=== PATIENT | male | born 1980 | race Caucasian/White ===

== ENCOUNTER → 2023-10-19 | Outpatient (CLI) | payer SELFPAY, OTHER ==
--- NOTE | 2023-10-19 14:53 | CT_ITS ---
INDICATION: SINUSITIS EXAMINATION/TECHNIQUE: X-RAY - CT Maxillofacial W/O Contrast Injection A radiation dose optimization technique was used for this scan. RADIATION DOSAGE (If Supplied By Facility): CTDIvol/DLP = ( 28.14 ) / ( 742.67 ) mGy/mGycm COMPARISON: None. Findings: Noncontrast serial CT axial images of the facial bones with coronal and sagittal reformatted series. OSSEOUS STRUCTURES: No facial fracture. No TMJ subluxation. Pansinus opacification. Diffuse mucoperiosteal thickening throughout all sinuses consistent with chronic sinus disease. ORBITS: No obvious acute globe abnormality. No infiltration the orbital fat. REMAINING SOFT TISSUES: Unremarkable. CT/Sinus/Facial Bone IMPRESSION: Severe pansinus disease. Electronically Signed: Edilson Osorio MD at 2:06 EDT ,
== END | disposition home or self-care (01) ==
LOC: CT 14:44
PROVIDERS: PCP Family Medicine; Referring Provider Otolaryngology; Visit Provider Otolaryngology
DX: J32.8 Other chronic sinusitis (principal)
CPT/HCPCS: 70486

== ENCOUNTER 2024-01-04 05:49 | Day surgery (SDC) | payer SELFPAY, OTHER ==
[2024-01-04] VITALS (11 sets, daily range): BP systolic 98–122; BP diastolic 68–91; PULSE 50–77; RESP 12–16; TEMP 36.2–37.1; O2SAT 87–97; BMI 38.7
--- NOTE | 2024-01-04 | MASS_PTH ---
PATIENT: ASHLEY HALE LOC: [facility] – [place] U#:[id number] AGE/SX: 43/M ROOM: RE01/04/[address]: Dr. Alo Montana MD : 1980 BED: DIS: 01/04/2024 SPEC #: [id number] RECD: 01/04/24 12:18 STATUS: ANA DELANO #: [id number] AZEB: 01/04/24 00:[address]: Alo Montana DEPT: SURGICAL PATHOLOGY RECD BY: Shantanu Olivia ENTERED: 01/04/24 12:19 SP TYPE: Mass OTHR DR: Dr. Yrn Casey MD Tissues: A - NASAL POLYP B - Ethmoid sinus, NOS C - Ethmoid sinus, NOS Procedures: Frozen Section (charge) Surgery Specimen Level III Surgery Specimen Level IV HEADER OPERATION: Functional endoscopic sinus surgery with navigation PRE-OP DIAGNOSIS: Nasal congestion, polyp of nasal cavity, chronic serous otitis media, bilateral, Chronic pansinusitis TISSUE SUBMITTED: A- Mass of left nasal cavity, B- Left nasal contents, C- Right nasal contents MICROSCOPIC DIAGNOSIS A. Mass of left nasal cavity, biopsy: Fragments of inflamed benign mucosal polyp. B. Left nasal contents: Fragments of benign respiratory mucosa with chronic inflammation. A few fragments of benign squamous mucosa. C. Right sinus contents: Fragments of respiratory mucosa with chronic inflammation. 01/07/2024 COMMENT Case has been reviewed in consultation with Dr. Bass who concurs with the above diagnosis. IDC:AM MICROSCOPIC DESCRIPTION Slides are reviewed. GROSS DESCRIPTION A. Received fresh for frozen section diagnosis labeled with the patient's name is a specimen designated Polyp nasal cavity. The specimen consists of multiple fragments of mccollum-pink soft tissue that in aggregate measure 1.0 x 0.5 x 0.1 cm. The entire specimen is submitted in one cassette for frozen section diagnosis. B. Received in fixative is one container labeled with the patient's name and designated Left nasal contents. The specimen consists of multiple fragments of pink soft tissue mixed with possible fragments of bone that in aggregate measure 4.0 x 3.0 x 0.2 cm. The specimen is totally submitted in two cassettes after decalcification. C. Received in fixative is one container labeled with the patient's name and designated Right sinus contents. The specimen consists of multiple fragments of hemorrhagic soft tissue mixed with possible fragments of bone that in aggregate measure 3.0 x 2.5 x 0.3 cm. The specimen is totally submitted in one cassette after decalcification. SJVargasmr 01/04/2024 TC:5 CPT:12392m3,39335,85311e1
[2024-01-04] MEDS: Lactated Ringers 1,000 ML 15 ML IV (06:37)
[2024-01-04 06:57] LABS: Anion Gap 3 (5-15); BUN 12 mg/dL (7-18); BUN/Creat Ratio 21.9 RATIO (10-20); Calcium,Total 8.8 mg/dL (8.5-10.1); Chloride 108 mmol/L (98-107); Creatinine, Serum 0.55 mg/dL (0.70-1.30); EST Glomerular Filtration Rate 173 mL/min (>60); Est Glom Filt Rate - Afr Amer 209 mL/min (>60); Estimated Creatinine Clearance 137.17 ml/min; Glucose 88 mg/dL (74-106); Potassium 3.6 mmol/L (3.5-5.1); Sodium Level 139 mmol/L (136-145)
[2024-01-04] MEDS: Lidocaine 1% /Epi 1:100 (20ml) 20 ML Vial (07:12)
[2024-01-04] MEDS: Oxymetazoline 0.05% 1 SPRAY SPRAY.BTL 15 SPRAY (07:12)
--- NOTE | 2024-01-04 07:20 | PRE.ANES_ITS ---
ASA Classification* ASA Classification ASA Classification: 2 and 3 Assessment & Plan Anesthesia* Anesthesia Assessment Anesthesia Assessment: Discussed sedation and/or anesthesia options, risks, benefits, and alternatives with patient/parents/legal guardian/POA. Questions invited. The patient/parents/legal guardian/POA seems to understand and agrees to proceed with anesthesia plan. Reviewed the physical assessment, medical history, allergy history and patient home medications list prior to surgery/procedure/anesthetic and documented any changes. Performed airway and anesthesia risk assessments. Anesthesia Type Anesthesia Type: General (see written pre anesthesia record for full assessment) Anesthesia Focused Assessment* Temperature: 98.8 F Pulse Rate: 77 Blood Pressure: 119/91 Respiratory Rate: 14 Pulse Ox: 97 Airway Assessment Mouth opens: >3 cm Mallampati Score: II Focused Labs Anesthesia Preop lab: CBC CHEMISTRY Potassium 3.6 mmol/L (3.5-5.1) 01/04/24 06:30 Sodium 139 mmol/L (136-145) 01/04/24 06:30 BUN 12 mg/dL (7-18) 01/04/24 06:30 Creatinine 0.55 mg/dL (0.70-1.30) L 01/04/24 06:30 Glucose 88 mg/dL (74-106) 01/04/24 06:30 COAG Pre-Assessment Diagnosis/Proposed Procedure Planned Operative Procedure(s): FUNCTIONAL ENDOSCOPIC SINUS SURGERY BILATERAL MYRINGOTOMY TUBES Anesthesia History Anesthesia History - mixer whipped topping: Anesthesia History - mixer whipped topping Hx Hospitalization No 12/23/23 12:17 Any Problems With Anesthesia No 12/23/23 12:17 Cholinesterase deficiency No 12/23/23 12:17 You/Your Family Experience No 12/23/23 12:17 fever (hyperthermia) with Relationship Recent Exposure to Contagious No 01/04/24 06:34 Disease Does patient have nerve No 12/23/23 12:17 stimulator Patient instructed to have device shut off --Does patient have Pacemaker No 01/04/24 06:38 or ICD? When Was Last Pacemaker Check QUESTION #4 FULL TEXT: You/Your Family Experience fever (hyperthermia) with Anesthesia Last Oral Intake Last Oral intake: Last Oral Intake NPO since 00:00 01/04/24 06:38 Meds taken in AM with sips of No 01/04/24 06:38 water? Meds patient instructed to take am of surgery PONV PONV - mixer whipped topping: PONV - mixer whipped topping Female No 12/23/23 12:17 HX of Motion Sickness No 12/23/23 12:17 HX of N/V After Surgery No 12/23/23 12:17 Non-Smoker Yes 12/23/23 12:17 Duration of Surgery greater Yes 12/23/23 12:17 than 60 minutes Number of Risk Factors 2 12/23/23 12:17 PONV Score Moderate Risk 12/23/23 12:17 Height & Weight Height & Weight: Anesthesia: Height & Weight Height 4 ft 3 in 01/04/24 06:38 Weight: 65 kg 01/04/24 06:38 Body Mass Index (BMI) 38.7 01/04/24 06:38 Respiratory Assessment Respiratory Assessment - mixer whipped topping: Respiratory Tract Infection Hx - mixer whipped topping Hx Respiratory Tract Infection No 12/23/23 12:17 STOP Sleep Apnea STOP Sleep Apnea - mixer whipped topping: STOP Sleep Apnea - mixer whipped topping Hx Hypertension No 12/23/23 12:17 Hx Sleep Apnea No 12/23/23 12:17 CPAP BIPAP Do you snore loudly (louder Yes 12/23/23 12:17 than talking or can be heard Do you often feel tired/ No 12/23/23 12:17 fatigued/ sleepy during daytime? Has anyone observed you stop No 12/23/23 12:17 breathing during sleep? STOP Results Negative 12/23/23 12:17 QUESTION #5 FULL TEXT : Do you snore loudly (louder than talking or can be heard through closed doors)? Tobacco Use History Tobacco Use History - mixer whipped topping: Tobacco Use History - mixer whipped topping Tobacco Use Smoking Status Never smoker 12/23/23 12:17 Hx Tobacco Use No 12/23/23 12:17 Years Smoking Packs Smoked per Day Smoking Cessation Date was within the last 15 years Hx Smoking Cessation Date Hx Smoking Cessation Counseling Hematologic Medial History Hematologic Hx - mixer whipped topping: Hematologic Medical Hx - managed care liaison Hx of Blood Transfusion No 12/23/23 12:17 Hx of Transfusion in last 3 No 12/23/23 12:17 Months Date of Last Transfusion (if within last 3 months) Ever experience any problems No 12/23/23 12:17 with transfusion(s)? Specify any problems Hx of Preganancy in last 3 N/A 12/23/23 12:17 Months Nurse Filling Out Transfusion [email or web address] 12/23/23 12:17 & Questions: Date: 12/23/23 12/23/23 12:17 Time: 12:22 12/23/23 12:17 Patient unable to answer at this time (ie. confused, unrespo /Reproduction History /Reproductive History - mixer whipped topping: /Reproductive Hx- mixer whipped topping Hx Now Gestational Age (in weeks): EDC: Hx Hx Para Hx Section SAB Active Medications Active Medications: Current Medications Generic Name Dose Route Start Last Admin Trade Name Freq PRN Reason Stop Dose Admin Clindamycin Phosphate 900 mg in 50 mls @ 75 mls/hr 01/04/24 07:30 Cleocin IV 01/04/24 08:09 PREOP ONE Lactated Ringer's 1,000 mls @ 15 mls/hr 01/04/24 06:15 01/04/24 06:37 IV 15 mls/hr .Q48H AB Administration PFSH Medical History Wears glasses Dwarfism Former smoker Home Medications ?Medication ?Instructions ?Recorded ?Last Taken ?Type loratadine 10 mg tablet (Allergy 10 mg PO DAILY 12/23/23 12/28/23 History Relief (loratadine)) Allergy/AdvReac Type Severity Reaction Status Date / Time No Known Allergies Allergy Verified 12/23/23 12:16 Surgical History Hx of appendectomy Social History Smoking Status: Never smoker Review of Systems (Anesthesia) ROS Narrative System reviewed and no additional complaints, except as documented.
--- NOTE | 2024-01-04 07:41 | PCM.DC ---
Discharge Instructions Diet Discharge Diet: No restrictions Activity Discharge Activity: Return to Normal Activity Dressing / Incision Call your doctor if your incision/area has: Sudden Increased Bleeding Additional Dressing/Incision Instructions:: saline to both nostrils 5 times daily. mupirocin to nostrils twice daily. Follow Up Care Please Follow Up With: Alo Montana MD When: 1 week Test Results: Test results from this visit will be discussed in further detail at your follow-up appointment, if applicable. Discharge Plan Admission Attending Provider: Alo Montana Primary Care Provider: Yrn Casey Instructions Print Language: Mongolian Discharge Orders/Prescriptions Prescriptions: No Action loratadine [Allergy Relief (loratadine)] 10 mg tablet 10 mg PO DAILY Referrals / Follow Up: Yrn Casey MD [Primary Care Provider] - Disposition Disposition (needs filled in before D/C Order can be placed): Home, Self Care
--- NOTE | 2024-01-04 07:44 | OP.PCM_ITS ---
Problems Associated Problem List Diagnoses (1) Chronic sinusitis: (2) Polyp of both nasal cavities: Report of Operation Date of Procedure: 01/04/24 Pre-Operative Diagnosis: 1. chronic pansinusitis 2. chronic serous otitis 3. sinonasal polyposis Post-Operative Diagnosis: 1. chronic pansinusitis 2. chronic serous otitis 3. sinonasal polyposis Surgery/Procedure Performed:: 1. endoscopic maxillary antrostomy with removal of contents, right and left 2. endoscopic total ethmoidectomy, right and left 3. endoscopic sphenoidotomy with removal of contents, right and left 4. Extensive removal sinonasal polyps, right and left 5. placement pressure equalization tubes, right and left 6. image guidance CT navigation Surgeon: Alo Montana Type of Anesthesia: General Description of Procedure: On the day of the procedure, after appropriate informed consent was obtained, the patient was brought to the operating room and placed in a supine position on the operating room table. The patient was placed under general endotracheal anesthesia by the anesthesiologist. The endotracheal tube was secured.? image guidance navigation was set up on the face and accuracy was confirmed.? the nose was injected with lidocaine/epinephrine and decongested with oxymetazoline- soaked pledgets.? the zero degree endoscope was used to evaluate the nasal cavity.? the superior attachment of the right and left middle turbinate and uncinate processes were injected with lidocaine/epinephrine.? the left nasal cavity was evaluated.? the middle turbinate was medialized.? extensive polyps were removed from the middle meatus, sphenoethmoidal recess and frontal recess. of note, the polypoid vs papillomatous masses were fused to the nasal septum and lateral nasal sidewall. a considerable amount of bleeding was encountered which appeared to emanate from a septal mass; however, this was uncertain. a maxillary antrostomy and uncinectomy were attempted through scar tissue but were unsuccessful. the middle turbinate was located by tactile feel as the entire ethmoid chamber was polyp and scar. frozen sections returned negative for carcinoma, but a papilloma subtype was suspected. ? a total ethmoidectomy was performed with a curette and an upgoing blakesley.? ? a stankewicz maneuver was performed and no laminar defect was noted.? the natural sphenoid os was widened with the microdebrider and contents were evacuated.? ? ? hemostasis was achieved with suction cautery; tracy was placed. the right nasal cavity was evaluated.? extensive polyps were removed from the middle meatus, sphenoethmoidal recess and frontal recess. again, the polypoid vs papillomatous masses were fused to the nasal septum and lateral nasal sidewall. the middle turbinate, polypoid mass and septal mucosa were one continuous soft tissue mass. the area was bovied/devascularized and a plane was created the inferior turbinate from the septum with the microdebrider and a manfred cut. a maxillary antrostomy and uncinectomy were attempted through scar tissue but were unsuccessful. sphenopalatine bleeding was encountered and cauterized with suction cautery. the middle turbinate was located by tactile feel as the entire ethmoid chamber was polyp and scar. ? a total ethmoidectomy was performed with a curette and an upgoing blakesley.? ? a stankewicz maneuver was performed and no laminar defect was noted.? the natural sphenoid os was widened with the microdebrider and contents were evacuated.? ? ? hemostasis was achieved with suction cautery; tracy was placed. a nasogastric tube was inserted orally and contents were evacuated.? the table was rotated 90 degrees toward the anesthesiologist and? was subsequently extubated uneventfully.? he was transferred to the PACU in stable condition.
[2024-01-04] MEDS: Clindamycin 900 MG/50 ML BAG 75 MG IV (09:21)
--- NOTE | 2024-01-04 10:10 | PCM.POST.ANE ---
Anesthesia: Postop Eval I Current Vital Signs Temperature: 97.1 F Pulse Rate: 55 Blood Pressure: 107/76 Respiratory Rate: 12 Pulse Ox: 95 Oxygen Delivery Method: Nasal Cannula Oxygen Flow Rate (L/min): 3 Assessment Airway patent: Yes Spontaneous unlabored respirations: Yes Mental status: Asleep nausea: No Vomiting: No Anesthesia Complication: No Fluid Hydration Crystalloid volume administer (ml): 1,200 Total IV fluid infused: 1,200 Progress Note Anesthesia document: Postop Eval 1 completed: Yes
--- NOTE | 2024-01-04 12:12 | PCM.POSTANE2 ---
Anesthesia Postop Eval I Sum Postop Eval Completion status Anesthesia document: Postop Eval 1 completed: Yes Anesthesia Postop Eval I Summary Anesthesia Postop Eval I Summary: Anesthesia Postop Eval I: Assessment Summary Airway patent Yes 01/04/24 10:28 [email or web address] Spontaneous unlabored Yes 01/04/24 10:28 [email or web address] respirations Mental status Asleep 01/04/24 10:28 [email or web address] nausea No 01/04/24 10:28 [email or web address] Vomiting No 01/04/24 10:28 [email or web address] Anesthesia Postop Eval I: Fluid Summary Crystalloid volume administer 1,200 01/04/24 10:28 [email or web address] (ml) Colloids volume administered ( ml) Blood Product volume administered (ml) Total IV fluid infused 1,200 01/04/24 10:28 [email or web address] Anesthesia Postop Eval I: Summary Notes Anesthesia Complication No 01/04/24 10:28 [email or web address] Anesthesia Complication Comment: Post-operative progress note Anesthesia: Postop Eval II Evaluation Mental status: Awake Pain Level: 0 nausea: No Vomiting: No
== END 2024-01-04 11:36 | disposition home or self-care (01) ==
LOC: SDC 05:49 → AC 05:51
PROVIDERS: PCP Family Medicine; Referring Provider Otolaryngology; Visit Provider Otolaryngology
PROC: (CPT 31259; principal; 2024-01-04 07:00)
DX: J32.4 Chronic pansinusitis (principal); J33.0 Polyp of nasal cavity; H65.23 Chronic serous otitis media, bilateral; R09.81 Nasal congestion
CPT/HCPCS: 31259; 30110; 31051; 69436; 00160; 80048; 88304; 88305; 88331; J7120; J2405